=== PATIENT | male | born 1945 | race Caucasian/White ===

== ENCOUNTER → 2022-07-11 16:38 | Outpatient (CLI) | payer OTHER, SELFPAY ==
--- NOTE | 2022-07-11 16:41 | DI.RAD.S_ITS ---
PROCEDURE: XR KNEE LT 3V INDICATIONS: Left knee pain TECHNIQUE: 3 views of the knee were acquired. COMPARISON: None. FINDINGS: Bones: No fractures or dislocations. Icjc-md-ugjyiwdy tricompartmental osteoarthritis is seen most notably in medial femoral tibial compartment with significant joint space narrowing, subchondral sclerosis and marginal osteophyte formation. No suspicious bony lesions. Soft tissues: No joint effusion. No suspicious soft tissue calcifications. IMPRESSION: Jzhj-ny-dfrzmrac tricompartmental osteoarthritis and chondromalacia most notably in medial femoral tibial compartment. No fracture or dislocation. No significant joint effusion. Dictated by: Jamey Carl M.D. on 07/12/2022 at 9:28 Approved by: Jamey Carl M.D. on 07/12/2022 at 9:31
== END ==
PROVIDERS: Referring Provider Family Medicine; Visit Provider Family Medicine
DX: M17.12 Unilateral primary osteoarthritis, left knee (principal); M94.262 Chondromalacia, left knee; M25.562 Pain in left knee
CPT/HCPCS: 73562

== ENCOUNTER → 2022-12-16 17:13 | Outpatient (CLI) | payer OTHER, SELFPAY ==
--- NOTE | 2022-12-16 17:15 | DI.RAD.S_ITS ---
PROCEDURE: XR ABDOMEN MIN 2V INDICATIONS: R19.4 TECHNIQUE: 2 views of the abdomen were acquired. COMPARISON: None. FINDINGS: Surgical changes and devices: None. Bowel: No pneumoperitoneum. Prominent gas in the stomach. Scattered small bowel gas. There is prominent stool in the colon. Soft tissues: No masses; visualized solid organ contours appear normal in size. No suspicious abdominal calcifications. Bones: No suspicious bony abnormalities. Minimal scoliosis. Moderate bilateral hip DJD. IMPRESSION: No dilated loops of small bowel. Prominent gas in the stomach. Prominent stool in the colon. Dictated by: Ortega Charles M.D. on 12/16/2022 at 17:57 Approved by: Ortega Charles M.D. on 12/16/2022 at 17:59
== END ==
PROVIDERS: Referring Provider Registered Nurse; Visit Provider Registered Nurse
DX: R19.4 Change in bowel habit (principal)
CPT/HCPCS: 74019

== ENCOUNTER 2023-01-31 11:32 | Day surgery (SDC) | payer OTHER, SELFPAY ==
[2023-01-20 08:55] VITALS: BMI 27.3
[2023-01-31 12:00] VITALS: BP 151/80; PULSE 75; RESP 16; TEMP 36.6; O2SAT 96; BMI 27.3
[2023-01-31] MEDS: LACTATED RINGERS 1,000 ML 84 ML IV (12:09)
--- NOTE | 2023-01-31 12:34 | SUR.OPER ---
Supine on padded OR bed, head on pillow, arms secured on padded arm boards at <90 degrees abduction, legs uncrossed, safety belt at thigh, tape over blanket over lower legs.
[2023-01-31] MEDS: CEFAZOLIN 2 GM/100 ML PREMIX 100 ML IV (12:45)
[2023-01-31] MEDS: BUPIVACAINE 0.5% (PF) 10 ML VIAL INJ (12:55)
[2023-01-31] MEDS: EPINEPHrine 1 MG/ML 0.15 MG INJ (12:56)
[2023-01-31 13:41] VITALS: BP 118/64; PULSE 65; RESP 15; TEMP 36.4; O2SAT 97
[2023-01-31 13:45] VITALS: BP 128/65; PULSE 65; RESP 15; O2SAT 96
--- NOTE | 2023-01-31 13:48 | P.OP.PRE_ITS ---
Pre-operative Note COVID-19 COVID-19 status: Not tested Interval Note History & Physical reviewed/Exam performed by Physician: Yes Changes to H&P: Yes H&P completed within 30 days and has changed as indicated here:: The patient d ecided to have his umbilical hernia repaired and contacted the office to schedule the surgery today. Otherwise no changes to his health since his December office visit. ASA Class (for procedural sedation): II
[2023-01-31 13:51] VITALS: BP 123/75; PULSE 62; RESP 14; O2SAT 97
--- NOTE | 2023-01-31 13:52 | PM.OP.1 ---
Operative Date/Time/Diagnoses Date of procedure: 01/31/23 Time of procedure: 13:52 Pre-op diagnosis: Umbilical hernia Post-op diagnosis: same Procedure & Clinicians Procedure: Open umbilical hernia repair with mesh Same procedure as scheduled: Yes Surgeon: Ravi Yung Anesthesia Type: General Operative Notes Procedure in detail: Ancef was administered. The patient was brought to the operating room, placed on the table in the supine position and general endotracheal anesthesia was induced. The abdomen was prepped and draped in the usual fashion. A time-out was performed. A 5 cm curvilinear incision was made inferior to the umbilicus. The hernia sac was dissected free from the surrounding subcutaneous adipose tissue. The sac was dissected off the umbilical stalk using a combination of cautery, sharp and blunt dissection. We did create a small defect in the hernia sac and were able to see healthy visceral fat sliding freely within the hernia. We then closed the peritoneal defect with a running 3-0 Vicryl suture. The remainder of the hernia sac was dissected free from the fascial ring and allowed to drop back down into the abdomen. The fascia was then closed transversely with for interrupted 0 Ethibond sutures. The subcutaneous adipose tissue was cleared off of the anterior sheath circumferentially about 1 cm in each direction. A piece of polypropylene mesh was trimmed to fit over the fascial closure and secured with Tisseel. Once the Tisseel was dried the umbilical skin was tacked down to the mesh with a single 3-0 Vicryl stitch. The skin was closed with multiple interrupted 3-0 Vicryl dermal sutures followed by a running 4 Monocryl subcuticular closure. Steri-Strips were applied and an abdominal binder was applied. Post-operative Condition: stable Disposition: PACU
[2023-01-31 13:55] VITALS: BP 148/86; PULSE 66; RESP 24; O2SAT 97
[2023-01-31 14:00] VITALS: BP 154/87; PULSE 67; RESP 17; O2SAT 97
--- NOTE | 2023-01-31 14:18 | SUR.PHASEII ---
DC home in . no pain, no n/v. voided w/o difficulty. all belongings with patient.
== END 2023-01-31 14:18 | disposition home or self-care (01) ==
PROVIDERS: PCP Family Medicine; Referring Provider Surgery; Visit Provider Surgery
PROC: (CPT 49593; principal; 2023-01-31 13:15)
DX: K42.9 Umbilical hernia without obstruction or gangrene (principal)
CPT/HCPCS: 49593; J0171; J0690; J2405; J2704; J3010

== ENCOUNTER 2024-09-22 07:14 | Emergency (ER) | payer OTHER, SELFPAY ==
[2024-09-22] VITALS (19 sets, daily range): BP systolic 88–209; BP diastolic 51–98; PULSE 57–70; RESP 12–21; TEMP 36.9; O2SAT 94–98; BMI 27.3
--- NOTE | 2024-09-22 07:19 | DI.RAD.S_ITS ---
PROCEDURE: XR CHEST 1V INDICATIONS: chest pain TECHNIQUE: One view of the chest was acquired. COMPARISON: None. FINDINGS: Surgical changes and devices: None. Lungs and pleura: Lungs are clear. No pleural effusions or pneumothorax. Mediastinum: Mediastinal contours appear normal. Heart size is normal. Bones and chest wall: No suspicious bony lesions. Overlying soft tissues appear unremarkable. IMPRESSION: No acute cardiopulmonary abnormality is seen. Dictated by: Ortega Charles M.D. on 09/22/2024 at 8:30 Approved by: Ortega Charles M.D. on 09/22/2024 at 8:31
--- NOTE | 2024-09-22 07:21 | EKG_ITS ---
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
[2024-09-22] MEDS: ASPIRIN 81 MG CHEW TAB 324 MG PO (07:24)
[2024-09-22 07:33] LABS: Add Manual Diff / Slide Review NO; Basophils Absolute Auto 100 /uL (0-100); Basophils Percent Auto 0.9 % (0-2); Eosinophils Absolute Auto 300 /uL (0-450); Eosinophils Percent Auto 3.7 % (2-4); Hematocrit 47.1 % (41-53); Hemoglobin 15.7 g/dL (13.5-17.5); Lymphocytes Absolute Auto 1800 /uL (1100-4500); Lymphocytes Percent Auto 23.8 % (25-40); Mean Corpuscular HGB Conc 33.4 % (30-36); Mean Corpuscular Hemoglobin 30.1 PG (26-34); Monocytes Absolute Auto 800 /uL (0-900); Monocytes Percent Auto 10.8 % (3-14); Neutrophils Absolute Auto 4600 /uL (1500-7000); Neutrophils Percent Auto 60.8 % (50-75); Platelet Count 264 X10^3/uL (150-400); Red Blood Cell Count 5.23 X10^6/uL (4.5-5.9); Red Cell Distribution Width 14.7 % (11.6-14.8); White Blood Cell Count 7.6 X10^3/uL (4.5-11.0)
[2024-09-22 07:38] LABS: Prothrombin Time 11.3 SECONDS (9.4-12.5)
--- NOTE | 2024-09-22 07:38 | ED_ITS ---
HPI - Chest Pain General Chief Complaint: Chest Pain Stated Complaint: Chest feels like squeezing Time Seen by Provider: 09/22/24 07:38 Source: patient, RN notes reviewed and old records reviewed Mode of arrival: Ambulatory Limitations: no limitations History of Present Illness HPI narrative: 78-year-old male no reported medical issues presents with complaint of substernal/left-sided chest squeezing. Patient states he woke up at about 430 this morning started having symptoms around 5:00 a.m. states still present. Has not resolved. He states it is worse with deep inhalation or if he laughs. He states exertion does not seem to worsen his symptoms. Describes it as substernal little bit towards the left no other radiation. No fevers or chills, no recent cold cough congestion or upper respiratory symptoms. He does feel little short of breath. Has not had similar symptoms in the past. States no nausea or vomiting. No issues with bowel movements or urination. No new swelling in his extremities does have occasionally have some mild swelling but states not any worse or new. States no daily medications, had a prior hernia repair over a year ago, no known drug allergies. No tobacco, for alcoholic drinks weekly, no recreational drugs. Does follow with Dr. Vann his primary care physician regularly. Had a 2 hour flight about a month ago but no other regular travel or long-distance travel. Patient states no known family history of cardiac issues or embolic issues. Related Data Allergies Allergy/AdvReac Type Severity Reaction Status Date / Time No Known Drug Allergies Allergy Unverified 02/13/23 09:56 Review of Systems Review of Systems ROS Unobtainable: All systems reviewed & are unremarkable except as noted in HPI and below Patient History Medical History Depression Enlarged prostate GERD (gastroesophageal reflux disease) Elevated cholesterol Hard of hearing Arthritis Surgical History Hx of hernia repair Hx of arthroscopy of knee Family History Mother Cancer Social History household members: spouse Smoking Status: Never smoker alcohol intake: current Smoking Status: Never smoker Alcohol type: beer Exam Narrative Exam Narrative: GENERAL: Alert and oriented x three, well-appearing male in mild distress HEENT: Head normocephalic, atraumatic, EOMI, pupils reactive, face symmetric, moist mucous membranes NECK: Supple, full range of motion CARDIOVASCULAR: Regular rate and rhythm without murmurs, rubs or gallops. No JVD. No edema bilateral lower extremities. RESPIRATORY: Breath sounds equal bilaterally, no wheezes rales or rhonchi. ABDOMEN: Soft, nontender. Normoactive bowel sounds all 4 quadrants. No guarding or rebound, rigidity, no mass : No CVA tenderness EXTREMITIES: Normal range of motion, no clubbing or edema. Neurovascularly intact NEUROLOGICAL: Cranial nerves II through XII grossly intact. Moving all extremities SKIN: Warm, dry, no petechiae, no rashes or lesions. Initial Vital Signs Initial Vital Signs: Vital Signs Pulse Oximetry 94 09/22/24 07:17 Scores HEART Score Heart Score history: Moderately Suspicious Heart Score EKG: Normal Heart Score Age: > or = 65 years old Heart Score risk factors: No known risk factors Course Orders Ordered: ED Orders 09/22/24 07:19 XR chest 1V Stat EKG-12 Lead Stat 09/22/24 07:24 Complete Blood Count AUTO DIFF Stat Comprehensive Metabolic Panel Stat D Dimer Stat Lipase Stat Magnesium Stat NT-proBNP (BNP-Adult 18+) Stat PTT Partial Thromboplastin [place] Stat Prothrombin Time INR Stat Troponin & CK Cardiac Panel Stat 09/22/24 08:15 Covid-19 + FLU A/B + RSV - PCR Stat 09/22/24 08:55 CT angio chest PE protocol Stat 09/22/24 09:24 EKG-12 Lead Stat 09/22/24 09:25 Trop I [Troponin I] Stat Discontinued Medications Aspirin (Aspirin 81 Mg Chew Tab) 324 mg PO NOW ONE Stop: 09/22/24 07:20 Last Admin: 09/22/24 07:24 Dose: 324 mg Documented By: KM Nitroglycerin (Nitroglycerin 0.4 Mg Sl Tab) 0.4 mg SL [id number] PRN PRN Reason: Chest Pain Last Admin: 09/22/24 08:11 Dose: 0.4 mg Documented By: RB Vital Signs Vital signs: Vital Signs - 8 hr 09/22/24 07:17 09/22/24 07:19 09/22/24 07:19 Temperature 98.5 F Pulse Rate 69 Respiratory Rate 20 Blood Pressure 209/98 H 209/98 H Pulse Oximetry 94 95 Oxygen Delivery Method Room Air 09/22/24 07:19 09/22/24 07:30 09/22/24 07:31 Temperature Pulse Rate 70 65 Respiratory Rate 12 Blood Pressure 175/85 H Pulse Oximetry 97 97 Oxygen Delivery Method 09/22/24 07:31 09/22/24 08:00 09/22/24 08:01 Temperature Pulse Rate 66 68 Respiratory Rate 19 17 Blood Pressure 176/93 H Pulse Oximetry 97 96 Oxygen Delivery Method 09/22/24 08:01 09/22/24 08:11 09/22/24 08:21 Temperature Pulse Rate 69 63 67 Respiratory Rate 21 14 Blood Pressure 176/93 H Pulse Oximetry 96 94 Oxygen Delivery Method 09/22/24 08:21 09/22/24 08:26 09/22/24 08:26 Temperature Pulse Rate 57 L Respiratory Rate 15 Blood Pressure 88/51 L 110/60 Pulse Oximetry 96 Oxygen Delivery Method 09/22/24 08:30 09/22/24 08:30 09/22/24 08:46 Temperature Pulse Rate 66 Respiratory Rate 16 Blood Pressure 115/63 128/69 Pulse Oximetry 94 Oxygen Delivery Method 09/22/24 08:46 09/22/24 09:00 09/22/24 09:00 Temperature Pulse Rate 66 66 Respiratory Rate 15 13 Blood Pressure 120/66 Pulse Oximetry 95 96 Oxygen Delivery Method 09/22/24 09:21 09/22/24 09:21 09/22/24 09:30 Temperature Pulse Rate 70 Respiratory Rate 21 Blood Pressure 150/72 H 161/82 H Pulse Oximetry 97 Oxygen Delivery Method 09/22/24 09:30 09/22/24 09:39 09/22/24 09:39 Temperature Pulse Rate 68 70 Respiratory Rate 17 18 Blood Pressure 158/84 H Pulse Oximetry 98 97 Oxygen Delivery Method 09/22/24 09:45 09/22/24 09:45 09/22/24 10:00 Temperature Pulse Rate 68 Respiratory Rate 13 Blood Pressure 158/77 H 142/70 H Pulse Oximetry 97 Oxygen Delivery Method 09/22/24 10:00 09/22/24 10:15 09/22/24 10:15 Temperature Pulse Rate 67 69 Respiratory Rate 13 13 Blood Pressure 138/76 Pulse Oximetry 97 96 Oxygen Delivery Method 09/22/24 10:30 09/22/24 10:30 Temperature Pulse Rate 67 Respiratory Rate 16 Blood Pressure 159/91 H Pulse Oximetry 97 Oxygen Delivery Method MDM - Chest Pain Lab Data 09/22/24 07:24 09/22/24 07:24 Labs: Lab Results 09/22/24 09/22/24 09/22/24 Range/Units 07:24 08:15 09:25 WBC 7.6 (4.5-11.0) X10^3/uL RBC 5.23 (4.5-5.9) X10^6/uL Hgb 15.7 (13.5-17.5) g/dL Hct 47.1 (41-53) % MCV 90.0 (80-100) fL MCH 30.1 (26-34) PG MCHC 33.4 (30-36) % RDW 14.7 (11.6-14.8) % Plt Count 264 (150-400) X10^3/uL Neut % (Auto) 60.8 (50-75) % Lymph % (Auto) 23.8 L (25-40) % [place] % (Auto) 10.8 (3-14) % Eos % (Auto) 3.7 (2-4) % Baso % (Auto) 0.9 (0-2) % Neut # (Auto) 4600 (6039-4488) /uL Lymph # (Auto) 1800 (2267-9136) /uL [place] # (Auto) 800 (0-900) /uL Eos # (Auto) 300 (0-450) /uL Baso # (Auto) 100 (0-100) /uL PT 11.3 (9.4-12.5) SECONDS INR 1.0 (0.9-1.3) APTT 35 (25.1-36.5) SECONDS D-Dimer 911 H (<500) ng/ml Sodium 141 (137-145) mmol/L Potassium 4.1 (3.4-5.1) mmol/L Chloride 105 (98-107) mmol/L Carbon Dioxide 28 (22-32) mmol/L BUN 12 (9-20) mg/dL Creatinine 0.96 (0.66-1.25) mg/dL Estimated GFR > 60 (>60) mL/min BUN/Creatinine Ratio 12.5 (6-22) Glucose 95 (80-110) mg/dL Calcium 8.9 (8.4-10.2) mg/dL Magnesium 1.9 (1.6-2.3) mg/dL Total Bilirubin 0.8 (0.2-1.3) mg/dL AST 30 (17-59) IU/L ALT 21 (<50) IU/L Alkaline Phosphatase 61 (38-126) U/L Total Creatine Kinase 110 (55-170) U/L Troponin I < 0.012 < 0.012 (0.01-0.034) ng/mL NT-Pro-B Natriuret Pep 377 (<450) pg/mL Total Protein 7.9 (6.3-8.2) g/dL Albumin 4.3 (3.5-5.0) g/dL Globulin 3.6 (1.7-4.1) g/dL Albumin/Globulin Ratio 1.2 (1.0-2.8) Lipase 166 (23-300) U/L SARS-CoV-2 (PCR) Negative (Negative) Influenza A (RT-PCR) Flu a negative (NEGATIVE) Influenza B (RT-PCR) Flu b negative (NEGATIVE) RSV (PCR) Negative (Negative) ECG Data Attestation: I personally reviewed and interpreted this ECG as follows: Prior ECG tracings: not available for review Interpretation: Sinus rhythm rate of 69 MA 176 QRS of 102 QTC of 432, no acute ST elevation no depression appreciated. No prior for comparison. Repeat EKG shows sinus rhythm with sinus arrhythmia rate of 65 MA 168 QRS of 106 QTC of 436, no acute ST elevation depression appreciated nonspecific change. [facility] Narrative Medical decision making narrative: 78-year-old male presents with complaint of substernal chest discomfort he describes has been a little bit to the left squeezing sensation worse with deep inhalation and laughter. Patient states exertion does not make it worse has not had similar symptoms in the past. Did have a 2 hour plane ride but no other high-risk factors for pulmonary emboli, no other known cardiac risk factors beyond age. Does follow with a physician regularly. Patient has not had any upper respiratory symptoms but I myocarditis, ACS, pulmonary emboli, vascular are all in the differential. EKG shows sinus rhythm no acute ST changes appreciated. No priors for comparison. Chest x-ray shows no acute change Labs show white count of 7.6 hemoglobin of 15 platelets of 264, coags is negative. Chemistries are overall appropriate creatinine 0.96. Troponins less than 0.012 with a BNP of 377. Lipase is 166. Repeat troponin is negative. D-dimer is elevated even with age adjustment. CT angio chest was ordered. COVID/influenza/RSV is negative. CT angio chest shows no pulmonary embolism, no acute cardiopulmonary process smooth gastric wall thickening nondistended gastric fundus could reflect mild gastritis and proper setting. No pericardial effusions noted. Patient had aspirin 324 mg, given nitro sublingual. On recheck patient states nitro maybe helped a little bit. Definitely decreased his blood pressure. We did discuss observation for stress testing. Patient politely defers. Reviewed his findings and need for follow up. Discharge Plan Departure Patient Disposition: Home Clinical Impression: Atypical chest pain Instructions: DI for Atypical Chest Pain Activity Restrictions/Additional Instructions: Follow up with your physician for recheck I would recommend you follow-up for further recheck of your chest pain and possibly stress test. Your workup today showed maybe a possible gastritis on your imaging but no other significant changes. You can try taking Pepcid daily. Please return if you have new or worsening symptoms, lightheadedness or passing out, shortness of breath, diaphoresis or sweatiness, nausea vomiting, new swelling of your extremities or other new or concerning changes. Referrals: Anthony Vann MD [Primary Care Provider] - Stand Alone Forms: Patient Portal/API/Survey
[2024-09-22 07:41] LABS: PTT Partial Thromboplastin Tim 35 SECONDS (25.1-36.5)
[2024-09-22 07:42] LABS: Alanine Aminotransferase 21 IU/L (<50); Albumin 4.3 g/dL (3.5-5.0); Albumin Globulin Ratio 1.2 (1.0-2.8); Alkaline Phosphatase 61 U/L (38-126); Aspartate Aminotransferase 30 IU/L (17-59); BUN Creatinine Ratio 12.5 (6-22); Bilirubin Total 0.8 mg/dL (0.2-1.3); Blood Urea Nitrogen 12 mg/dL (9-20); Calcium 8.9 mg/dL (8.4-10.2); Carbon Dioxide 28 mmol/L (22-32); Chloride 105 mmol/L (98-107); Creatine Kinase 110 U/L (55-170); Estimated Glomerular Filt Rate > 60 mL/min (>60); Globulin 3.6 g/dL (1.7-4.1); Glucose 95 mg/dL (80-110); HEMOLYSIS < 15 (0-50); Lipase 166 U/L (23-300); Magnesium 1.9 mg/dL (1.6-2.3); Potassium 4.1 mmol/L (3.4-5.1); Sodium 141 mmol/L (137-145); Total Protein 7.9 g/dL (6.3-8.2)
[2024-09-22 07:54] LABS: NT-proBNP (BNP-Adult 18+) 377 pg/mL (<450); Troponin I < 0.012 ng/mL (0.01-0.034)
[2024-09-22] MEDS: NITROGLYCERIN 0.4 MG SL TAB SL (08:11)
[2024-09-22 08:44] LABS: D Dimer 911 ng/ml (<500)
--- NOTE | 2024-09-22 08:55 | DI.CT.S_ITS ---
PROCEDURE: CT ANGIO CHEST PE PROTOCOL INDICATIONS: chest squeezing, worse with inhalation, laugh, recent flight TECHNIQUE: After the administration of intravenous contrast, 2 mm thick sections acquired from the pulmonary apices to the posterior costophrenic angles. For radiation dose reduction, the following was used: automated exposure control, adjustment of mA and/or kV according to patient size. COMPARISON: None. FINDINGS: Image quality: Diagnostic. Pulmonary arteries: Pulmonary arteries are normal in size, and demonstrate no intraluminal filling defects to suggest central pulmonary embolism. Lower Neck: No enlarged lymph nodes. Thyroid: No thyroid nodules which require sonographic follow up, per consensus guidelines. Axillae: No enlarged lymph nodes. Chest Wall: Unremarkable. Bones: Unremarkable. Lungs and Pleura: No pneumothorax or pleural effusions. No consolidation or suspicious nodules. Heart: Heart size is normal. No pericardial effusion. Thoracic Vessels: No aortic aneurysm. Mediastinum and [place]: No enlarged lymph nodes. Esophagus: No wall thickening. No hiatal hernia. Upper Abdomen: Smooth gastric wall thickening in the undistended stomach IMPRESSION: No pulmonary embolus. No acute cardiopulmonary process. Smooth gastric wall thickening in the nondistended gastric fundus could reflect mild gastritis in the proper clinical setting. Approved by: Gavin Stevenson M.D. on 09/22/2024 at 8:48
[2024-09-22 08:59] LABS: COVID-19 CEPHEID 4-PLEX PCR Negative (Negative); Influenza A - CEPHEID Flu A NEGATIVE (NEGATIVE); Influenza B - CEPHEID Flu B NEGATIVE (NEGATIVE); Respiratory Syncytial Virus Negative (Negative)
--- NOTE | 2024-09-22 09:28 | EKG_ITS ---
[address] [address] Test Date: 2024-09-22 Pat Name: Bharat Connolly Department: [facility] Room: Gender: Male Seaman: : 1945 Requested By: Order Number: [id number] Reading MD: Viraj Arevalo Measurements Intervals [place] Rate: 65 P: 33 MI: 168 QRS: 47 QRSD: 106 T: 48 QT: 420 QTc: 436 Interpretive Statements Normal sinus rhythm with sinus arrhythmia Electronically Signed On 09-22-2024 18:58:00 PST by Viraj Arevalo
[2024-09-22 09:57] LABS: Troponin I < 0.012 ng/mL (0.01-0.034)
== END 2024-09-22 10:53 | disposition home or self-care (01) ==
PROVIDERS: Emergency Provider Emergency Medicine; PCP Family Medicine
DX: R07.89 Other chest pain (principal); I49.8 Other specified cardiac arrhythmias
CPT/HCPCS: 0241U; 36415; 71045; 71275; 80053; 82550; 83690; 83735; 83880; 84484; 85025; 85379; 85610; 85730; 93005; 99284; Q9967

== ENCOUNTER → 2024-10-29 14:36 | Outpatient (CLI) | payer OTHER, SELFPAY ==
--- NOTE | 2024-10-29 14:39 | DI.RAD.S_ITS ---
PROCEDURE: XR CHEST 2V INDICATIONS: ATYPICAL CHEST PAIN TECHNIQUE: 2 views of the chest were acquired. COMPARISON: [facility], CR, XR CHEST 1V, 09/22/2024, 7:32. FINDINGS: Heart, mediastinum and pulmonary vascular: Heart is normal in size and configuration. Mediastinum is unremarkable. Pulmonary vascular is normal. Lungs: Clear Pleural spaces: Normal-no effusions or pneumothorax. IMPRESSION: Normal chest. Dictated by: Miguel Ángel Perez M.D. on 10/30/2024 at 10:07 Approved by: Miguel Ángel Perez M.D. on 10/30/2024 at 10:08
== END ==
PROVIDERS: PCP Family Medicine; Referring Provider Family Medicine; Visit Provider Family Medicine
DX: R07.89 Other chest pain (principal)
CPT/HCPCS: 71046